=== PATIENT | female | born 2000 | race Caucasian/White ===

== ENCOUNTER 2024-01-05 09:51 | Day surgery (SDC) | payer BC ==
[~2024-01-05 09:51] MED LIST: Sodium Chloride 0.9% 10 ML Syringe FLUSH PRN; Sodium Chloride 0.9% 2.5 ML Syringe FLUSH PRN; Sodium Chloride 0.9% 20 ML SDV IV PRN
[2024-01-05] MEDS: Lactated Ringers 1,000 ML IV SCH (10:24)
[2024-01-05] MEDS ORDERED: Midazolam 1 MG/ML 2 ML SDV ONE (12:11)
[2024-01-05] MEDS ORDERED: Lidocaine 2% 5 ML SDV ONE (12:17)
[2024-01-05] MEDS ORDERED: Propofol 200 MG/20 ML SDV ONE ×2 (12:18)
== END 2024-01-05 13:25 | disposition home or self-care (01) ==
LOC: MW.SDS 09:51
PROVIDERS: ATTEND Surgery
DX: K63.89 Other specified diseases of intestine (principal); K59.09 Other constipation; K58.1 Irritable bowel syndrome with constipation; K21.9 Gastro-esophageal reflux disease without esophagitis; J45.909 Unspecified asthma, uncomplicated; Z79.899 Other long term (current) drug therapy; Z91.040 Latex allergy status
CPT/HCPCS: 45380; 81025; J2250; J2704; J7120; 00811; J3490